=== PATIENT | male | born 1940 | race Caucasian/White ===

== ENCOUNTER 2020-09-10 14:23 | Emergency (ER) | payer OTHER, SELFPAY ==
--- NOTE | ~2020-09-10 | XR_ITS ---
EXAMINATION: XR wrist LT min 3V EXAM DATE: 09/10/2020 14:49 INDICATION: Left wrist pain s/p fall today . Initial encounter. TECHNIQUE: Left wrist frontal, frontal with ulnar deviation, oblique and lateral projections obtained and reviewed. There is no prior study for comparison. FINDINGS: Acute closed posttraumatic fracture of the left radial metaphysis extending into the radioc arpal joint. Mild posterior distraction and displacement. Abnormal scaphoid, with some small ossifications adjacent to it or possibly old fractures with nonuni on. 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 There is soft tissue swelling. IMPRESSION: 1. Acute left distal radial metaphyseal fracture into radiocarpal joint. 2. Chronic scaphoid irregularity. Reviewed, dictated and finalized at location A. [employer]
[2020-09-10 14:35] VITALS: BP 184/83; PULSE 99; RESP 16; TEMP 36.8; O2SAT 98
--- NOTE | 2020-09-10 15:00 | ED.GENADULT ---
HPI - General Adult General Chief complaint: Extremity Injury, Upper Stated complaint: Wrist Pain Time Seen by Provider: 09/10/20 15:05 Source: patient Mode of arrival: ambulatory Limitations: no limitations History of Present Illness HPI narrative: 80-year-old male patient presents to the [facility] with complaints of left wrist pain. Patient states that he slid down a hill in his yard and tried to use his hands to brace his fall. Patient states he landed mostly to the left wrist. Denies any numbness or tingling to the fingertips. Related Data Home Medications Medication Instructions Recorded Confirmed alprazolam 0.25 mg PO DAILY 09/10/20 09/10/20 felodipine 2.5 mg PO DAILY 09/10/20 09/10/20 hydroxyurea 500 mg PO DAILY 09/10/20 09/10/20 lisinopril 20 mg PO DAILY 09/10/20 09/10/20 terazosin 2 mg PO DAILY 09/10/20 09/10/20 Allergies Allergy/AdvReac Type Severity Reaction Status Date / Time No Known Allergies Allergy Verified 09/10/20 14:52 Review of Systems Review of Systems: Narrative: CONSTITUTIONAL: Denies fever, chills, or sweats. EYES: Denies visual changes, redness, or discharge. ENT: Denies rhinorrhea, congestion, sore throat, or otalgia. CARDIOVASCULAR: Denies chest pain, palpitations, or edema. RESPIRATORY: Denies cough or dyspnea. GASTROINTESTINAL: Denies abdominal pain, nausea, vomiting, or diarrhea. GENITOURINARY: Denies dysuria or hematuria. SKIN: Denies rash or itching. MUSCULOSKELETAL: Denies back pain, joint pain, or myalgia. Positive left wrist pain NEUROLOGIC: Denies headache, numbness, or weakness. PSYCHIATRIC: Denies anxiety or depression. [facility] Past Medical History Medical History (Updated 09/10/20 @ 15:36 by CORA Stringer) Fractures Right shoulder Hypertension Family History Family History Mother Family history of malignant neoplasm of breast in first degree relative Social History Social History Smoking status: Never smoker Alcohol intake: never Comments At the time of my signature I agree with nursing past medical history, surgical, social, and family history. There is no relevant family history pertinent to the presenting complaint. Exam Narrative: Exam Narrative: GENERAL: Well-appearing, well-nourished, and in no acute distress. HEAD: Normocephalic, atraumatic. EYES: PERRLA and EOMI. ENT: Nares clear, no rhinorrhea or epistaxis. Mucous membranes moist. NECK: Supple. No lymphadenopathy CHEST: Clear to auscultation. No respiratory distress. HEART: Regular rate and rhythm. No murmur heard. Normal peripheral pulses. ABDOMEN: Soft, nontender, nondistended, normal active bowel sounds. EXTREMITIES: The L wrist is with obvious deformity when compared to the R wrist. No surface trauma, open wounds, swelling, or obvious deformity. No overlying erythema or warmth. Patient does have focal area of tenderness to the radial side of the wrist on the posterior side. No scaphoid fullness or tenderness to direct palpation or axial load. Decreased flex/extension, ulnar/radial deviation. Motor/sensory function of ulnar, radial, median nerves intact. Ulnar and radial pulses intact. SKIN: Warm, dry, no rash. NEURO: No focal deficits. Alert and oriented x3. Course Reevaluation(s) Reevaluation #1: Patient is scheduled to see Dr. Alessio Webster at [facility] orthopedics at [facility] tomorrow morning, 09/11 at 1120 in the morning. This was placed on patient's discharge papers and notified patient of the appointment. Discussed with patient that he needs to take the disc as well as the report of the x-ray to his appointment tomorrow. Discussed with patient that I did call back his primary doctor and gave them the referral fax number so that they can fax over the referral. Discussed with him that I will fax over my notes to the orthopedic office for his appoint
== END 2020-09-10 15:52 | disposition home or self-care (01) ==
PROVIDERS: Emergency Provider Nurse Practitioner Family
DX: S52.502A Unspecified fracture of the lower end of left radius, initial encounter for closed fracture (principal); W17.81XA Fall down embankment (hill), initial encounter; I10 Essential (primary) hypertension
CPT/HCPCS: 29125; 73110; 99214; G0463